=== PATIENT | male | born 1985 | race Caucasian/White ===

== ENCOUNTER 2019-08-04 09:56 | Emergency (ER) | payer MEDICAID ==
[~2019-08-04] VITALS: Ht 170.2 cm; Wt 83.9 kg
[2019-08-04 10:20] VITALS: BP 122/73
--- NOTE | 2019-08-04 10:27 | NUR ---
WAIT AT LOBBY.
--- NOTE | 2019-08-04 11:09 | NUR ---
PT AMBULATED TO BED 02.
--- NOTE | 2019-08-04 11:22 | NUR ---
33 Y/O M C/C FLU LIKE SYMPTOMS X8 DAYS. PT HAS TAKEN OTC MEDICATIONS WITH NO RELIEF. CLEAR LUNG SOUNDS. PT NKA. NO HX. NO RX. NO N/V. DIARRHEA ON AND OFF X4 DAYS. SIDE RAIL X1. FAMILY AT BEDSIDE.
[2019-08-04 11:58] VITALS: BP 122/73
== END 2019-08-04 11:58 | disposition home or self-care (01) ==
LOC: MED 09:56
DX: J18.1 Lobar pneumonia, unspecified organism (principal)
CPT/HCPCS: 71046; 99283